=== PATIENT | female | born 1960 | race Caucasian/White ===

== ENCOUNTER 2018-09-18 10:54 | Day surgery (SDC) | payer BC ==
[~2018-09-18 10:54] MED LIST: ACETAMINOPHEN 1,000 MG/100 ML BTL IV ONE; CLINDAMYCIN PHOS/D5W 900MG 900 MG/50 ML BAG IVPB ONE; MORPHINE SULFATE 4 MG/ML VIAL ONE
[2018-09-18] MEDS ORDERED: KETOROLAC 30 MG/ML VIAL IVP ONE (10:55)
[2018-09-18] MEDS ORDERED: LIDOCAINE 2% MDV (20MG/ML) 20ML VIAL IV ONE (10:55)
[2018-09-18] MEDS ORDERED: FENTANYL PF 100MCG/2ML VIAL IV ONE (10:55)
[2018-09-18] MEDS ORDERED: MIDAZOLAM HCL 2MG/2ML VIAL IV ONE (10:55)
[2018-09-18] MEDS ORDERED: SEVOFLURANE 250 ML INH ONE (10:55)
[2018-09-18] MEDS ORDERED: PROPOFOL 10 MG/ML VIAL IV ONE (10:55)
[2018-09-18] MEDS ORDERED: BUPIVACAINE 0.5% W/EPI MPF 30 ML VIAL SQ ONE (13:27)
[2018-09-18] MEDS ORDERED: METHYLPREDNISOLONE 40MG/VIAL IM ONE (13:27)
[2018-09-18] MEDS ORDERED: MORPHINE SULFATE 5 MG/ML PFS IVP ONE (13:28)
--- NOTE | 2018-09-19 08:50 | Operative Note ---
DATE OF SURGERY: 09/18/2018 PREOPERATIVE DIAGNOSIS: Torn medial meniscus of the right knee. POSTOPERATIVE DIAGNOSES: 1. Grade 3 chondromalacia of patella. 2. 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 3. Split tear involving the posterior horn of the medial meniscus. OPERATION: 1. Right knee arthroscopy with partial medial meniscectomy. 2. Right knee arthroscopy with chondroplasty of the patella and medial femoral condyle. Staff Surgeon: Nicholas Saravia MD Anesthesia: General. Preparation: Chloraprep. Individual Considerations: None. PROCEDURE: The patient was taken to the operating room and placed supine on the operating room table. She had a successful induction with general anesthetic. Her right lower extremity was prepped and draped in the usual fashion. Examination under anesthesia showed normal ligaments. The patient had a superolateral inflow cannula placed. Skin was infiltrated with 0.5% Marcaine with epinephrine prior. The knee was then inflated with normal saline. An inferomedial and an inferolateral portal were made in a similar fashion. The arthroscope was introduced through the inferolateral portal up into the pouch. The patellofemoral joint showed grade 3 changes of the patella. Notch was normal. No loose bodies were seen in the pouch or either gutter. The medial compartment structures showed small grade 3 change in the medial femoral condyle way medial to the midline at the center about 45 degrees about the size of a nickel. This was smoothed off with a shaver. It was peeling but not down to bone. Obvious split tear involving the posterior horn of the medial meniscus. There was a large flap with a stalk posteromedially. This was amputated and then the remainder of the meniscus was debrided out with a basket forceps and a shaver to a stable rim taking pretty much most of the posterior horn out. I did leave most of the medial and anterior horn. In the notch, the cruciates were normal. Lateral compartment structures were normal. The knee was then irrigated out with saline to remove loose floating debris. Portals were closed with chase and 20 mL of 0.5% Marcaine with epinephrine along with 40 mg of Depo-Medrol was injected into the knee. A sterile bulky compressive dressing was applied. The patient tolerated procedure well. Needle and sponge counts were correct. Estimated blood loss was minimal. The patient was taken back to recovery in good condition. There were no complications. [facility]ITAL[facility]ie
== END 2018-09-18 14:30 | disposition home or self-care (01) ==
LOC: SUR 10:54
PROVIDERS: ATTEND Orthopaedic Surgery
DX: S83.241A Other tear of medial meniscus, current injury, right knee, initial encounter (principal); M94.261 Chondromalacia, right knee; J45.909 Unspecified asthma, uncomplicated
CPT/HCPCS: J1030; J1885; J2270; J3490